=== PATIENT | male | born 2000 | race Caucasian/White ===

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

== ENCOUNTER 2018-05-03 17:10 | Emergency (ER) | payer OTHER ==
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
[2018-05-03 17:26] VITALS: BP 102/69; PULSE 75; TEMP 98; BMI 17.7
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
== END 2018-05-03 19:17 | disposition home or self-care (01) ==
LOC: JERFT 17:10
DX: S93.601A Unspecified sprain of right foot, initial encounter (principal); X58.XXXA Exposure to other specified factors, initial encounter; Y93.89 Activity, other specified; Y92.89 Other specified places as the place of occurrence of the external cause
CPT/HCPCS: 73610-TC-RT-FY; 73630-TC-RT-FY; 99281-25

== ENCOUNTER → 2022-05-16 | Emergency (ER) | payer OTHER ==
[~2022-05-16] MED LIST: IBUPROFEN 400 MG TABLET (FP) PO ONE
[2022-05-16 18:29] VITALS: BP 110/72; PULSE 74; RESP 18; TEMP 97.9; BMI 20.3
== END | disposition left against medical advice (07) ==
LOC: JERFT 18:13 → JER 18:13
DX: R07.9 Chest pain, unspecified (principal)
CPT/HCPCS: 93005; 93010; 99283-25